=== PATIENT | male | born 1960 | race Caucasian/White ===

== ENCOUNTER 2021-04-22 11:00 | Emergency (ER) | payer OTHER ==
[~2021-04-22] VITALS: Ht 188 cm; Wt 109.7 kg
[2021-04-22 11:52] LABS: WHITE BLOOD COUNT 10.3 X10'3 (4.5-11.0)
[2021-04-22 11:54] LABS: BASOPHILS % (AUTO) 0.3 % (0-1); EOSINOPHILS # (AUTO) 0.2 X10'3 (0-0.9); EOSINOPHILS % (AUTO) 1.6 % (0-6); HEMATOCRIT 41.4 % (42.0-52.0); LYMPHOCYTES # (AUTO) 1.7 X10'3 (1.1-4.8); LYMPHOCYTES % (AUTO) 16.3 % (21-51); MEAN CORPUSCULAR HEMOGLOBIN 32.9 PG (27.0-31.0); MEAN CORPUSCULAR HGB CONC 33.9 g/dL (33.0-36.5); MONOCYTES # (AUTO) 1.1 X10'3 (0-0.9); MONOCYTES % (AUTO) 10.3 % (2-12); NEUTROPHILS # (AUTO) 7.4 X10'3 (1.8-7.7); NEUTROPHILS % (AUTO) 71.5 % (42-75); RED BLOOD COUNT 4.26 X10'6 (4.70-6.10); RED CELL DISTRIBUTION WIDTH 14.1 % (11.5-14.5)
[2021-04-22 12:07] LABS: ALANINE AMINOTRANSFERASE 29 U/L (12-78); ALBUMIN 3.6 G/DL (3.4-5.0); ALKALINE PHOSPHATASE 126 IU/L (46-116); ANION GAP 11 (8-16); ASPARTATE AMINO TRANSFERASE 43 U/L (10-37); BILIRUBIN,TOTAL 0.4 MG/DL (0.1-1.0); BLOOD UREA NITROGEN 21 MG/DL (7-18); BUN/CREATININE RATIO 14.6 (5.4-32.0); CALCIUM 9.2 MG/DL (8.5-10.1); CHLORIDE 103 MMOL/L (99-107); CREATININE 1.44 MG/DL (0.60-1.10); GLUCOSE 125 MG/DL (70-104); POTASSIUM 3.2 MMOL/L (3.5-5.1); SODIUM 139 MMOL/L (135-145); TOTAL CARBON DIOXIDE 25.4 MMOL/L (24-32); TOTAL PROTEIN 7.1 G/DL (6.4-8.2); eGFR 50 ML/MIN
[2021-04-22 12:10] LABS: MEAN PLATELET VOLUME 7.9 FL (7.4-10.4); PLATELET COUNT 317 X10'3 (140-440)
[2021-04-22 12:16] LABS: MAGNESIUM 2.3 MG/DL (1.5-2.4); TROPONIN I < 0.04 NG/ML (0.0-0.05)
[2021-04-22 14:00] VITALS: BP 127/52
[2021-04-22] MEDS ORDERED: magnesium 2GM in 50ml NS 50 ML IV PRN (14:25)
[2021-04-22] MEDS ORDERED: potassium Cl 40MEQ/1/2NS 520ml 520 ML IV PRN ×2 (14:25)
[2021-04-22] MEDS ORDERED: acetaminophen 325mg tablet PO PRN (14:25)
[2021-04-22] MEDS ORDERED: ondansetron/PF 4mg/2ml inj IV PRN (14:25)
[2021-04-22] MEDS ORDERED: magnesium 4gm in 100ml NS 100 ML IV PRN (14:25)
[2021-04-22] MEDS ORDERED: normal saline 1000ml 1,000 ML IV SCH (14:25)
[2021-04-22] MEDS ORDERED: magnesium Cl slow-release 64mg tablet PO PRN (14:25)
[2021-04-22] MEDS ORDERED: potassium Cl 20 mEq SR tablet PO PRN ×2 (14:25)
[2021-04-22] MEDS ORDERED: SIMV-42 PO (14:49)
[2021-04-22] MEDS ORDERED: METO-467 PO (14:49)
[2021-04-22] MEDS ORDERED: AMLO10TA48 PO (14:49)
[2021-04-22] MEDS ORDERED: HYDR25TA5 PO (14:49)
[2021-04-22] MEDS ORDERED: LOSA100T3 PO (14:49)
--- NOTE | 2021-04-22 16:35 | NUR ---
PT AND ARE VERY UPSET AND WANTING TO LEAVE, CHEMICAL MANAGER AND MD NOTIFIED. EDUCATED ON THE RISKS OF LEAVING. STATES THEY ARE GOING TO [facility] WHERE THEIR FLIGHT COMMUNICATIONS SPECIALIST IS.
--- NOTE | 2021-04-22 16:48 | NUR ---
PAGER ID: [phone] MESSAGE: JOHNATHAN [phone] RE: BED 11 [place] PT IS VERY UPSET AND WANTS TO SEE A INSTRUCTOR OF SOCIOLOGY AND WANTS TO LEAVE, CAN YOU PLEASE COME TALK TO HIM.
--- NOTE | 2021-04-22 16:56 | NUR ---
PAGER ID: [phone] MESSAGE: JOHNATHAN [phone] RE: BED [address]
[2021-04-22] MEDS ORDERED: K and/or MAG REPLACEMENT MC SCH (20:00)
[2021-04-22] MEDS ORDERED: atorvastatin 20mg tablet PO SCH (21:00)
[2021-04-23] MEDS ORDERED: losartan 50mg tablet PO SCH (08:00)
[2021-04-23] MEDS ORDERED: HYDROchlorothiazide 25mg tablet PO SCH (08:00)
== END 2021-04-22 17:02 | disposition left against medical advice (07) | DRG 310 ==
LOC: ER 11:00 → ED HOLD 14:26 → UNDOADMIN 14:26 → UNDODISIN 16:55
DX: I44.2 Atrioventricular block, complete (principal); F17.200 Nicotine dependence, unspecified, uncomplicated; I10 Essential (primary) hypertension; Z53.29 Procedure and treatment not carried out because of patient's decision for other reasons; Z79.899 Other long term (current) drug therapy
CPT/HCPCS: 71045; 80053; 83735; 83880; 84484; 85025; 86618; 93005; 99285; G0378